=== PATIENT | female | born 1960 | race African-American/Black ===

== ENCOUNTER 2016-11-16 05:04 | Emergency (ER) | payer MEDICAID, OTHER ==
[2016-11-16] VITALS (8 sets, daily range): BP systolic 138–171; BP diastolic 69–118
[~2016-11-16] VITALS: Ht 167.6 cm; Wt 86.2 kg
--- NOTE | 2016-11-16 05:12 | Emergency Room Report ---
History of Present Illness General Chief Complaint: General Complaint Source: Patient Present Illness HPI Is a 56-year-old female with a history of A. fib. She also had a major stroke because of it. It left her with left-sided weakness. Occasionally she will get spasm of her left arm or left leg. She usually doesn't last to all. Tonight she had spasm of her left leg. His been ongoing since 2:00 AM. It felt tired and weak. Denies any fever chills denies any focal deficit. No nausea no vomiting. No fever or chills. She is normally not on any medication for this. Allergies: Coded Allergies: No Known Allergies (Unverified , 11/16/16) Patient History Past Medical History: see triage record, old chart reviewed, AFib, CVA/TIA Past Surgical History: other Pertinent Family History: none Social History: Denies: smoking Last Menstrual Period: Last month Now: No Immunizations: other Reviewed Nursing Documentation: PMH: Agreed, PSxH: Agreed Nursing Documentation-PMH Past Medical History: No History, Except For Hx Hypertension: Yes Hx Diabetes: Yes Review of Systems Eye: Denies: blurred vision, eye pain ENT: Denies: ear pain, nose congestion, throat swelling Respiratory: Denies: cough, shortness of breath Cardiovascular: Denies: chest pain, palpitations Gastrointestinal: Denies: abdominal pain, diarrhea, nausea, vomiting Musculoskeletal: Denies: back pain, joint pain Skin: Denies: rash Neurological: Denies: headache, numbness Endocrine: Denies: increased thirst, increased urine Hematologic/Lymphatic: Denies: easy bruising All Other Systems: negative except mentioned in HPI Physical Exam Vital Signs Date Time Temp Pulse Resp B/P Pulse Ox O2 Delivery O2 Flow Rate FiO2 11/16/16 05:02 98.8 137 16 189/101 99 Room Air vitals with hypertension and tachycardia and htn Sp02 EP Interpretation: reviewed, normal General Appearance: well appearing, no apparent distress, alert Head: normocephalic, atraumatic Eyes: bilateral eye EOMI, bilateral eye PERRL ENT: hearing grossly normal, normal pharynx Neck: full range of motion, supple, no meningismus Respiratory: chest non-tender, lungs clear, normal breath sounds Cardiovascular #1: no murmur, tachycardia, irregularly irregular Gastrointestinal: normal bowel sounds, non tender, no mass, no organomegaly, no bruit, non-distended Musculoskeletal: back normal, normal range of motion Neurologic: alert, oriented x3, other - left sided weakness with left leg twitching Psychiatric: mood/affect normal Skin: warm/dry Medical Decision Making Diagnostic Impression: Primary Impression: Muscle spasm of left lower extremity Additional Impressions: Episodic atrial fibrillation Hyperglycemia due to type 2 diabetes mellitus Qualified Codes: E11.65 - Type 2 diabetes mellitus with hyperglycemia ER Course Patient presents with muscle spasm secondary to autonomic dysfunction from a CVA. Is an occasional problem for her. It is now well controlled with Ativan. She no longer had any spasm. Her heart rate is now in sinus rhythm at 90s. She said this happened also multiple times. Sometimes she go into A. fib and back out again. He has no evidence of CVA, CHF, ACS to name a few. We'll discharge home and labs are unremarkable. Patient complained that her left leg for a week she can't bear weight on it. The latest the last for an hour and she gets spasm. However is lasting longer because she's been having spasm for several hours. We'll watch her to make sure things will improve. If not she may need to be admitted. Lab Results Impression labs with hyperglycemia EKG Diagnostic Results Rate: normal Rhythm: NSR ST Segments: no acute changes Rhythm Strip Diag. Results Rhythm Strip Time: 05:43 EP Interpretation: yes Rate: 92 Rhythm: NSR Chest X-Ray Diagnostic Results Chest X-Ray Ordered: Yes # of Views/Limited/Complete: 1 View Interpretation: no consolidation, no effusion, no pneumothorax, no acute cardiopulmonary disease Indication: Shortness of Breath Impression: No acute disease Date Electronically Signed: Nov 16, 2016 Time Electronically Signed: 05:44 Interpreting ER Physician: Elmer Harris Last Vital Signs Date Time Temp Pulse Resp B/P Pulse Ox O2 Delivery O2 Flow Rate FiO2 11/16/16 05:02 98.8 137 16 189/101 99 Room Air Status: improved Disposition: HOME, SELF-CARE Condition: Stable Scripts Lorazepam* (ATIVAN*) 1 Mg Tablet 1 MG ORAL THREE TIMES A DAY for spasm, #20 TAB Prov: ELMER HARRIS M.D. 11/16/16 Additional Instructions: Followup with your DrJhonatan in 2-3 days. Return if symptom worsen. ELMER HARRIS M.D. Nov 16, 2016 05:12
[2016-11-16] MEDS ORDERED: LORazepam Inj 2mg/ml 1ml IV ONE (05:15)
[2016-11-16 05:41] LABS: BASOPHILS % (AUTO) 0.6 % (0.0-2.0); EOSINOPHILS % (AUTO) 0.1 % (0.0-3.0); LYMPHOCYTES % (AUTO) 15.5 % (20.0-45.0); MEAN CORPUSCULAR HEMOGLOBIN 28.4 PG (27.0-31.0); MEAN CORPUSCULAR HGB CONC 32.5 G/DL (32.0-36.0); MEAN CORPUSCULAR VOLUME 87 FL (80-99); MEAN PLATELET VOLUME 7.7 FL (6.5-10.1); NEUTROPHILS % (AUTO) 79.8 % (45.0-75.0); PLATELET COUNT 281 K/UL (150-450); RED BLOOD COUNT 3.89 M/UL (4.20-5.40); RED CELL DISTRIBUTION WIDTH 14.7 % (11.6-14.8); WHITE BLOOD COUNT 7.5 K/UL (4.8-10.8)
[2016-11-16] MEDS ORDERED: ATIVAN1 MG ORAL (05:45)
[2016-11-16 05:52] LABS: ANION GAP 18 (5-15); CALCIUM 8.8 mg/dL (8.6-10.2); CARBON DIOXIDE 26 mEQ/L (20-30); CHLORIDE 96 mEQ/L (98-107); CREATININE 0.7 mg/dL (0.5-0.9); GLOMERULAR FILTRATION RATE > 60 mL/min (>60); HEMOLYSIS 3; SODIUM 140 mEQ/L (135-145)
[2016-11-16 05:53] LABS: TROPONIN I < 0.30 ng/mL (<=0.30)
[2016-11-16 06:02] LABS: INR 1.8 (0.9-1.1); PROTHROMBIN TIME 18.5 SEC (9.30-11.50)
[2016-11-16] MEDS ORDERED: Acetaminophen 500mg (ES) tab ORAL ONE ×2 (09:29→10:15)
--- NOTE | 2016-11-16 09:31 | Diagnostic Imaging Report ---
Indication: CP Technique: Single AP view of the chest. Findings: Comparison: None. The bones and extra pulmonary soft tissues, cardiomediastinal silhouette, pulmonary vasculature and parenchyma, and pleural surfaces are unremarkable. IMPRESSION: Negative AP chest.
[2016-11-16] MEDS ORDERED: COUMADIN1 MG ORAL (13:49)
[2016-11-16] MEDS ORDERED: CYCLOBENZAPRINE10 MG ORAL (14:27)
[2016-11-16] MEDS ORDERED: METFORMIN HCL1000 M3 PO (14:27)
--- NOTE | 2016-11-16 14:48 | History and Physical ---
History of Present Illness General Date patient seen: Nov 16, 2016 Time patient seen: 13:30 Reason for Hospitalization: General Complaint Present Illness HPI 56-year-old female with a history of A. 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 Patient occasionally gets muscle spasm in LUE or LLE , but usually last only 10 -15 minutes. She felt tired and weak Denies any focal deficits no chest pain, no SOB, no palpitations, no dizziness, no blackout, no falls no fever, no chills in ED she was given muscle relaxant and medicated for pain her symptoms resolved Lab work revealed hyperglycemia and hypokalemia patient was unable to ambulate even though pain and spasm resolved and was admitted for further management Allergies: Coded Allergies: No Known Allergies (Unverified , 11/16/16) Medication History Scheduled Lorazepam* (Ativan*), 1 MG ORAL THREE TIMES A DAY Warfarin Sod* (Coumadin*), Unknown Dose ORAL DAILY, (Reported) Scheduled PRN Cyclobenzaprine Hcl* (Flexeril*), 10 MG ORAL TID PRN for Muscle Spasm Metformin HCl (Metformin HCl ER), 1,000 MG PO for diabetes, (Reported) Patient History History Provided By: Patient Healthcare decision maker Resuscitation status Advanced Directive on File Past Medical/Surgical History Past Medical/Surgical History: (1) Left-sided weakness (2) Diabetes (3) Muscle spasm (4) HTN (hypertension) (5) History of CVA (cerebrovascular accident) (6) Atrial fibrillation Review of Systems Constitutional: Reports: no symptoms Eye: Reports: no symptoms ENT: Reports: no symptoms Respiratory: Reports: no symptoms Cardiovascular: Reports: other - HTN Gastrointestinal: Reports: no symptoms Genitourinary: Reports: no symptoms Musculoskeletal: Reports: see HPI Skin: Reports: no symptoms Psychiatric: Reports: no symptoms Neurological: Reports: other - 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 Endocrine: Reports: other - DM OOC Hematologic/Lymphatic: Reports: no symptoms Physical Exam General Appearance: WD/WN, no apparent distress, alert - A/A/O x 3 Lines, tubes and drains: peripheral HEENT: normocephalic, atraumatic, anicteric, mucous membranes moist, PERRL Neck: non-tender, supple Respiratory/Chest: chest wall non-tender, lungs clear, no respiratory distress , no accessory muscle use Cardiovascular/Chest: normal peripheral pulses, normal rate, no JVD, irregularly irregular Abdomen: normal bowel sounds, non tender, soft Extremities: no calf tenderness, normal capillary refill, other - left side weakness Skin Exam: normal pigmentation, warm/dry Neurologic: abnormal gait, alert, oriented x 3, responsive, other - left side weakness Musculoskeletal: normal muscle bulk Last 24 Hour Vital Signs Date Time Temp Pulse Resp B/P Pulse Ox O2 Delivery O2 Flow Rate FiO2 11/16/16 14:08 80 14 151/98 98 Room Air 11/16/16 11:04 99.1 74 19 160/73 100 Room Air 11/16/16 07:56 97.8 77 16 165/82 100 Room Air 11/16/16 07:00 83 20 160/83 99 Room Air 11/16/16 06:00 81 19 171/91 100 Room Air 11/16/16 05:30 98 19 150/118 98 Room Air 11/16/16 05:02 98.8 137 16 189/101 99 Room Air Intake and Output 11/15/16 11/16/16 19:00 07:00 Intake Total 0 ml Output Total 200 ml Balance -200 ml Intake Oral 0 ml Output Urine Total 200 ml Laboratory Tests Test 11/16/16 05:10 White Blood Count 7.5 K/UL (4.8-10.8) Red Blood Count 3.89 M/UL (4.20-5.40) L Hemoglobin 11.1 G/DL (12.0-16.0) L Hematocrit 34.0 % (37.0-47.0) L Mean Corpuscular Volume 87 FL (80-99) Mean Corpuscular Hemoglobin 28.4 PG (27.0-31.0) Mean Corpuscular Hemoglobin Concent 32.5 G/DL (32.0-36.0) Red Cell Distribution Width 14.7 % (11.6-14.8) Platelet Count 281 K/UL (150-450) Mean Platelet Volume 7.7 FL (6.5-10.1) Neutrophils (%) (Auto) 79.8 % (45.0-75.0) H Lymphocytes (%) (Auto) 15.5 % (20.0-45.0) L Monocytes (%) (Auto) 4.0 % (1.0-10.0) Eosinophils (%) (Auto) 0.1 % (0.0-3.0) Basophils (%) (Auto) 0.6 % (0.0-2.0) Prothrombin Time 18.5 SEC (9.30-11.50) H Prothromb Time International Ratio 1.8 (0.9-1.1) H Sodium Level 140 mEQ/L (135-145) Potassium Level 3.0 mEQ/L (3.4-4.9) L Chloride Level 96 mEQ/L (98-107) L Carbon Dioxide Level 26 mEQ/L (20-30) Anion Gap 18 (5-15) H Blood Urea Nitrogen 19 mg/dL (7-23) Creatinine 0.7 mg/dL (0.5-0.9) Estimat Glomerular Filtration Rate > 60 mL/min (>60) Glucose Level 292 mg/dL (74-106) H Calcium Level 8.8 mg/dL (8.6-10.2) Troponin I < 0.30 ng/mL (<=0.30) Height (Feet): 5 Height (Inches): 6.00 Weight (Pounds): 190 Assessment/Plan Status Narrative ASSESSMENT LLE muscle spasm hypokalemia AF 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
[2016-11-16] MEDS ORDERED: Mylanta II UD 30ml ORAL PRN (15:00)
[2016-11-16] MEDS ORDERED: DuoNeb 0.5-3(2.5)mg/3ml neb HHN PRN (15:00)
[2016-11-16] MEDS ORDERED: Metoclopramide 10mg/2ml Inj IVP PRN (15:00)
[2016-11-16] MEDS ORDERED: Miralax 17gm pkt ORAL PRN (15:00)
[2016-11-16] MEDS ORDERED: Morphine Sulfate 2mg/ml Inj IVP PRN (15:00)
[2016-11-16] MEDS ORDERED: Methocarbamol 500mg tab ORAL PRN (15:00)
[2016-11-16] MEDS ORDERED: Cyclobenzaprine 10mg Tab ORAL PRN (15:15)
[2016-11-16] MEDS ORDERED: NovoLOG Insulin Flexpen SUBQ SCH (16:30)
[2016-11-16] MEDS ORDERED: Warfarin Sodium 1mg ORAL SCH (17:00)
[2016-11-16] MEDS ORDERED: Heparin 5000 units/ml inj SUBQ SCH (21:00)
[2016-11-16] MEDS ORDERED: Docusate 100mg cap ORAL SCH (21:00)
[2016-11-16] MEDS ORDERED: Metoprolol 25mg tab ORAL SCH (21:00)
--- NOTE | 2016-11-18 18:32 | Cardiology Report ---
APPROVED REPORT EKG Measurement Heart [id number] Normal sinus rhythm Normal ECG
== END 2016-11-16 15:35 | disposition home or self-care (01) ==
LOC: EDBD 05:04 → EMR 05:37 → 4E 12:22 → UNDOADMIN 12:22 → EDBEDREQ 13:15 → EMR 15:35
DX: M62.838 Other muscle spasm (principal); E87.6 Hypokalemia; E11.65 Type 2 diabetes mellitus with hyperglycemia; I48.91 Unspecified atrial fibrillation; I69.354 Hemiplegia and hemiparesis following cerebral infarction affecting left non-dominant side; I10 Essential (primary) hypertension; Z79.01 Long term (current) use of anticoagulants; Z79.899 Other long term (current) drug therapy
CPT/HCPCS: 36415; 71010; 80048; 82962; 83735; 84484; 85025; 85610; 93005; J8499

== ENCOUNTER 2017-06-21 11:05 | Emergency (ER) | payer OTHER ==
[~2017-06-21] VITALS: Ht 165.1 cm; Wt 61.2 kg
[~2017-06-21 11:05] MED LIST: ATIVAN1 MG ORAL; COUMADIN1 MG ORAL; CYCLOBENZAPRINE10 MG ORAL; METFORMIN HCL1000 M3 PO
[2017-06-21 12:41] LABS: ANION GAP 10 mmol/L (5-15); BLOOD UREA NITROGEN 23 mg/dL (7-18); CALCIUM 9.6 MG/DL (8.5-10.1); CARBON DIOXIDE 29 MMOL/L (21-32); CHLORIDE 99 MMOL/L (98-107); CREATININE 0.9 MG/DL (0.55-1.30); POTASSIUM 3.6 MMOL/L (3.5-5.1); SODIUM 138 MMOL/L (136-145)
[2017-06-21 12:45] LABS: ALANINE AMINOTRANSFERASE 10 U/L (12-78); ALBUMIN 3.3 G/DL (3.4-5.0); ALBUMIN/GLOBULIN RATIO 0.6 (1.0-2.7); ALKALINE PHOSPHATASE 83 U/L (46-116); ASPARTATE AMINO TRANSFERASE 10 U/L (15-37); BILIRUBIN,TOTAL 0.5 MG/DL (0.2-1.0)
[2017-06-21] MEDS ORDERED: MAG6464 MG PO (13:00)
--- NOTE | 2017-06-21 14:34 | Emergency Room Report ---
History of Present Illness General Chief Complaint: Generalized Weakness Source: Patient Present Illness HPI 57-year-old female presents with left leg spasm intermittent for 1 week States she was at [facility] 3 days ago for similar, found to have low potassium which was repleted she was given powder potassium supplement She takes HCTZ for HTN Mg was not checked denies weakness to lower leg, chest pain, shortness of breath, headache Allergies: Coded Allergies: No Known Allergies (Unverified , 11/16/16) Patient History Past Medical History: HTN, CVA/TIA Past Surgical History: none Pertinent Family History: none Social History: Denies: smoking, alcohol use, drug use Now: No Immunizations: UTD Reviewed Nursing Documentation: PMH: Agreed, PSxH: Agreed Nursing Documentation-PMH Hx Hypertension: Yes Hx Diabetes: Yes Hx Gastrointestinal Problems: Yes - high cholesterol Hx Cerebrovascular Accident: Yes Review of Systems All Other Systems: negative except mentioned in HPI Physical Exam Vital Signs Date Time Temp Pulse Resp B/P (MAP) Pulse Ox O2 Delivery O2 Flow Rate FiO2 06/21/17 10:55 78 18 140/83 98 Sp02 EP Interpretation: reviewed, normal General Appearance: normal inspection, well appearing, no apparent distress, alert, GCS 15, non-toxic Head: normocephalic, atraumatic Eyes: bilateral eye PERRL, bilateral eye EOMI ENT: normal ENT inspection, hearing grossly normal, normal pharynx, no angioedema, normal voice, TMs + canals normal, uvula midline, moist mucus membranes Neck: normal inspection, full range of motion, supple, thyroid normal, no meningismus, no bony tend Respiratory: normal inspection, lungs clear, normal breath sounds, no rhonchi, no respiratory distress, no retraction, no accessory muscle use, no wheezing, speaking full sentences Cardiovascular #1: regular rate, rhythm, no edema, no JVD, normal capillary refill Gastrointestinal: normal inspection, normal bowel sounds, non tender, soft, no mass, no peritonitis, non-distended, no guarding, no hernia, no pulsatile mass Genitourinary: no CVA tenderness Musculoskeletal: normal inspection, back normal, normal range of motion, no calf tenderness, pelvis stable, Benjamin's Sign negative, other - Visualized intermittent spasm left leg, patient able to reduce spasm but focusing Neurologic: normal inspection, alert, oriented x3, responsive, operations program manager III-XII nml as tested, motor strength/tone normal, cerebellar normal, normal gait, speech normal Psychiatric: normal inspection, judgement/insight normal, mood/affect normal, no suicidal/homicidal ideation, no delusions Skin: normal inspection, normal color, no rash Lymphatic: normal inspection, no adenopathy Medical Decision Making Diagnostic Impression: Primary Impression: Hypomagnesemia ER Course Potassium normal Mg 1.5, was repleted intravenously in the ER given magnesium supplementation advised to continue taking K. supplementation as well recommended close followup with PMD to recheck CMP and magnesium levels in one to 2 days Also to discuss with PMD necessity of taking HCTZ if continued affect on electrolytes ER course: Patient has remained stable during ED stay. Disposition: Patient is to be discharged to home. Prescriptions given are Magnesium Patient is instructed to follow up with their primary care doctor within 1-2 days. Strict return precautions discussed with patient such as fever, chills, worsening/severe pain, nausea, vomiting, which may indicate severe illness. Patient verbalizes understanding and agrees with plan. Please note that this Emergency Department Report was dictated using [employer] protection technician technology software, occasionally this can lead to erroneous entry secondary to interpretation by the dictation equipment Last Vital Signs Date Time Temp Pulse Resp B/P (MAP) Pulse Ox O2 Delivery O2 Flow Rate FiO2 06/21/17 10:55 78 18 140/83 98 Status: improved Disposition: HOME, SELF-CARE Condition: Improved Scripts Magnesium Chloride (Mag64) 64 Mg Tablet. 64 MG PO BID for 7 Days, #14 TAB Prov: ELAN RICHTER M.D. 06/21/17 Patient Instructions: Muscle Cramps and Spasms, [id number], Hypomagnesemia Additional Instructions: - followup with your primary doctor in 1-2 days to recheck potassium and magnesium levels - take magnesium twice a day as prescribed for one week - discuss with your doctor if you need to take potassium ELAN RICHTER M.D. Jun 21, 2017 14:34
[2017-06-21 14:59] VITALS: BP 170/84
[2017-06-21 17:06] VITALS: BP 160/90
== END 2017-06-21 17:15 | disposition home or self-care (01) ==
LOC: EDBD 11:05 → EMR 11:35
DX: E83.42 Hypomagnesemia (principal); E11.9 Type 2 diabetes mellitus without complications; I10 Essential (primary) hypertension; Z86.73 Personal history of transient ischemic attack (TIA), and cerebral infarction without residual deficits; E78.00 Pure hypercholesterolemia, unspecified
CPT/HCPCS: 36415; 80053; 83735; 96374; 99284